=== PATIENT | male | born 2005 | race Caucasian/White ===

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

== ENCOUNTER 2024-02-02 00:50 | Emergency (ER) | payer SELFPAY ==
[2024-02-02 00:59] VITALS: BMI 27.3
[2024-02-02 02:35] VITALS: BP 115/71; PULSE 85; RESP 18; TEMP 98.1
== END 2024-02-02 02:41 | disposition home or self-care (01) ==
LOC: FER 00:50
DX: F12.10 Cannabis abuse, uncomplicated (principal)
CPT/HCPCS: 99282-25